=== PATIENT | female | born 1980 | race Caucasian/White ===

== ENCOUNTER → 2024-03-16 07:16 | Outpatient (REF) | payer OTHER, SELFPAY | LOC: RCS 07:16 | PROVIDERS: ATTENDING PHYSICIAN Internal Medicine Cardiovascular Disease; FAMILY PHYSICIAN Internal Medicine | DX: I50.30 Unspecified diastolic (congestive) heart failure (principal) | CPT/HCPCS: 93306; Q9950 ==

== ENCOUNTER 2024-03-23 15:32 | Inpatient (IN) | payer OTHER, SELFPAY ==
[2024-03-23] VITALS (22 sets, daily range): BP systolic 104–179; BP diastolic 86–124; PULSE 94–121; BMI 42.9
--- NOTE | 2024-03-23 11:45 | ED.GENMED ---
History of Present Illness
General
Chief Complaint: Breathing Problem
Source: patient and family
Exam Limitations: none
Time Seen by Provider: 03/23/24 10:55
Nursing documentation reviewed up to this point in time: agreed with
Travel History
Have you had any contact with someone who has COVID-19?: No
Do you have any symptoms of coronavirus? Fever > 100 degrees, chills, cough, shortness of breath, sore throat, loss of taste or smell, muscle aches, or headache?: No
History of Present Illness
History of Present Illness:
43-year-old female presents with shortness of breath subacute onset she status post bypass surgery at [facility] in the past year, diabetic smoker obese with strong family history in her brother CAD she followed up with her prior wellness nurse who
ordered a chemical stress test, which was abnormal told that she needed a cardiac cath she followed up with Dr. Ojeda locally who started her on a diuretic since being on the diuretic she is lost 13 pounds but she feels fatigued short of breath
some leg cramps, her leg edema has improved
Past History
Past History
ED Past Medical History: CAD, GERD, HTN and Other
ED Past Surgical History: Cardiac; Negative Appendectomy, Bowel resection or Cholecystectomy
Social History
Tobacco: Former smoker
Alcohol: Occasional
Drug: None
Personal:
Living: with family
Employment: Employed
Family History
Family History: CAD
Review of Systems
Review of Systems
All Other Systems: Not applicable
Constitutional: Reports fatigue; Denies fever
EENT: Reports no symptoms
Respiratory: Reports trouble breathing
Cardiac: Reports other; Denies chest pain, palpitations or syncope
ABD/GI: Reports no symptoms
: Reports no symptoms
Musculoskeletal: Reports muscle stiffness
Neurological: Reports dizzy and weakness
Psychiatric: Reports no symptoms
Phy Exam
Physical Exam
Physical Exam:
Physical Exam
General: no apparent distress, not acutely ill
Neck: No jaundice
Heart: Regular
Lungs: no acute respiratory distress. clear bilaterally
Abdomen: Not tender
Neuro: alert and oriented. no focal neurological deficits
Skin: no rash
Psychiatric: well kept. interactive and cooperative
Extremities: no edema. no calf tenderness
Scores
Heart Score for Chest Pain Patients
STEMI patient?: No
History: Moderately Suspicious
ECG: Nonspecific Repolarization
Age: </= 45 years
Risk Factors: >/= 3 Risk Factors or History of CAD
Troponin: >1 - <3 x Normal Limit
Heart Score for Chest Pain Patients: 5
Heart Score Risk: 20.3% MACE over next 6 weeks
Course
Orders/Labs/Results
Orders:
Orders
03/23/24 Lunch
NPO
Allow oral meds: Yes
Allow clear liquids: No
03/23/24 10:28
EKG [Electrocardiogram (*1)] Stat
Reason for Study: Shortness of Breath
EKG- Treatment ONCE
03/23/24 10:56
Cardiac Monitoring- Treatment ONCE
CR Chest - 2 Views Urgent
Comment:
Reason For Exam: sob
03/23/24 11:39
Orthostatic VS- Treatment ONCE
03/23/24 11:47
Complete Blood Count/With Diff Urgent
Comprehensive Metabolic Panel Urgent
Magnesium Urgent
NT-proBNP Urgent
Troponin I Urgent
03/23/24 12:39
CARDIOLOGY CONSULT Urgent
Consulting Provider: Roby Moeller
Was physician already notified: Yes
03/23/24 12:49
Heparin 4,000 units IV NOW STA
03/23/24 12:[address] Non Medication Order As Directed
Physician Order: PTT 6 hours after initial start of Heparin infusion
Above order entered?: Yes
03/23/24 12:54
PTT Urgent
Comment: Obtain baseline before beginning heparin infusion if not already collected
03/23/24 12:58
Metoprolol [Lopressor] 2.5 mg IV NOW STA
03/23/24 12:59
Nitroglycerin Sublingual [Nitrostat (Sublingual)] 0.4 mg SL NOW STA
03/23/24 13:00
Heparin 74051 Units/250 ml 25,000 units in 250 ml IV PER PROTOCOL
Weight to be used for heparin protocol in kilograms (kg):: 139.6
Protocol:: Cardiac Tx/Acute Coronary
PTT Goal Range to be used:: PTT 73 to 111 seconds
Order type:: Initial
INITIAL Infusion Dose (UNITS/KG/hr) & then follow protocol:: 12 units/kg/hr
Infusion Dose in UNITS/hr & then follow protocol (UNITS/hr):: 1,000
INFUSION RATE in mL/hr & then follow protocol (mL/hr):: 10
PTT less than or equal to 64 seconds:: Increase rate by 200 units/hr (+ 2 mL/hr)
PTT 64.1 to 72.9 seconds:: Increase rate by 100 units/hr (+ 1 mL/hr)
PTT 73 to 111 seconds:: Target Range. No change in rate.
PTT 111.1 to 130.9 seconds:: Decrease rate by 100 units/hr (- 1 mL/hr)
PTT 131 to 199.9 seconds:: HOLD for 1 hr. Then decrease rate by 200 units/hr (- 2 mL/hr)
PTT greater than or equal to 200 seconds:: HOLD for 2 hrs & Notify Provider. Then decrease by 200 units/hr (-
2 mL/hr)
Lab follow-up:: Each change, PTT q6h until 2 consecutive are therapeutic. Then PTT
daily.
03/23/24 20:00
PTT Urgent
Abnormal Lab Results
03/23/24 03/23/24
11:47 14:06
MCV 76.6 L fL
(81.0-99.0)
MCH 24.0 L pg
(27.0-31.0)
MCHC 31.3 L g/dL
(33.0-37.0)
Plt Count 432 H 10^3/uL
(130-400)
Creatinine 0.5 L mg/dL
(0.6-1.0)
Glucose 265 H mg/dl
(70-99)
Calcium 10.3 H mg/dl
(8.4-10.2)
Total Bilirubin 1.8 H mg/dl
(0.2-1.3)
AST 51 H U/L
(14-36)
ALT 43 H U/L
(0-35)
Troponin I 0.163 H* ng/ml
Total Protein 8.3 H g/dl
(6.3-8.2)
POC Glucose 216 H mg/dl
(70-99)
03/23/24 11:47
03/23/24 11:47
Vital Signs
Initial and Last Documented VS:
Initial Vital Signs
Temp Pulse Resp BP Pulse Ox
97.6 F 105 32 162/110 100
03/23/24 10:26 03/23/24 10:26 03/23/24 10:26 03/23/24 10:26 03/23/24 10:26
Last Documented Vital Signs
Temp Pulse Resp BP Pulse Ox
97.6 F 97 14 160/93 99
03/23/24 10:26 03/23/24 13:01 03/23/24 12:30 03/23/24 13:03/23/24 12:18
MDM/Problems Addressed
Differential Diagnosis Includes:
Overdiuresis orthostasis electrolyte abnormality heart failure deconditioning
MDM/Problems Addressed:
Fatigue shortness of breath
Chronic conditions affecting care: DM, HTN, CAD and Cardiomyopathy
Acute Exacerbation and/or Progression of Chronic Illness: DM, HTN, CAD and Cardiomyopathy
*EKG
Interpreted by ED Provider?: Yes
Interpretation: abnormal
Comparison EKG: no comparison EKG present
Heart Rate: 78
Rate: normal
Rhythm: sinus
Ischemia: T-wave inversion
*Field Hauler Interpretation
Rate: normal
Interpretation: normal
Heart Rate: 78
Rhythm: sinus
*Critical Care Note
Total Time (30-74mins, 75-104mins- exclusive of procedures): Not Applicable
Update Note
Update Note:
Update, chest x-ray noted labs are noted
Discussed with her wellness nurse, patient will be started on heparin, cardiac cath
ED Attending Note
-
Portions of this chart may have been created with voice recognition software.� Occasional wrong word or��sound alike� substitutions may have occurred due to the inherent limitations of voice recognition software.
Discharge Plan
Departure
Patient Disposition: Admit
Date of Disposition: 03/23/24
Time of Disposition: 13:09
Admit to: IVU
Presentation/result/management discussed w/ accepting MD/DO: Hospitalist
Patient with high blood pressure during this ER visit?: Yes
Condition: Fair
Covid-19: Not Applicable
Discharge Problem:
Increasing shortness of breath
Prescriptions:
No Action
cyclobenzaprine [Flexeril] 10 mg Tablet
10 mg PO HS
cetirizine 10 mg Tablet
10 mg PO HS
glipizide 10 mg Tablet
10 mg PO BID
clopidogrel 75 mg Tablet
75 mg PO DAILY
aspirin 81 mg Tablet,Delayed Release (Dr/Ec)
81 mg PO DAILY
metformin 500 mg Tablet Extended Release 24 Hr
500 mg PO DAILY
ezetimibe 10 mg Tablet
10 mg PO DAILY
rosuvastatin 40 mg Tablet
40 mg PO HS
bupropion HCl 150 mg Tablet Extended Release 24 Hr
150 mg PO HS
metoprolol tartrate 25 mg Tablet
25 mg PO BID
duloxetine 60 mg Capsule,Delayed Release(Dr/Ec)
60 mg PO DAILY
Xtampza ER 13.5 mg Cap,Sprinkl,Er12hr(Dont Crush)
13.5 mg PO HS
insulin glargine U-300 conc [Toujeo Max U-300 SoloStar] 300 unit/mL (3 mL) Insulin Pen
10 unit SC DAILY
Ozempic 1 mg/dose (4 mg/3 mL) Pen Injector
1 mg SC FR
Referrals:
Jennifer Guerra MD [Family Provider] -
Interventions
Interventions:
*Risk Screen - Suicide Last Done: 03/23/24 10:26
*General Assessment Last Done: 03/23/24 10:26
*Neglect/Abuse Screening Last Done: 03/23/24 10:26
ED- Fall Risk Assessment Last Done: 03/23/24 11:01
*ED COVID-19 Vaccine History Last Done: 03/23/24 10:26
ED- Cardiac Assessment Last Done: 03/23/24 11:01
ED- Pulmonary Assessment Last Done: 03/23/24 11:01
Discharge Date and Time
Print Language: ITALIAN
[2024-03-23 12:02] LABS: % Basophils 0.4 % (0-2); % Eosinophils 0.5 % (0-6); % Immature Granulocytes 0.2 % (0-0.5); % Lymphocytes 30.1 % (20.5-51.1); % Monocytes 5.6 % (1.7-9.3); % Neutrophils 63.2 % (42.2-75.2); Absolute Eosinophils 0.1 10^3/uL (0-0.7); Absolute Lymphocytes 3.1 10^3/uL (1.2-3.4); Absolute Monocytes 0.6 10^3/uL (0.1-0.6); Absolute Neutrophils 6.5 10^3/uL (1.4-6.5); Hematocrit 39.9 % (37.0-47.0); Hemoglobin 12.5 g/dL (12.0-16.0); Mean Corp Hgb Conc. 31.3 g/dL (33.0-37.0); Mean Corpuscular Volume 76.6 fL (81.0-99.0); Mean Platelet Volume 10.1 fL (7.4-10.4); Nucleated Red Blood Cells % 0 %; Platelet Count 432 10^3/uL (130-400); Red Blood Cell Count 5.21 10^6/uL (4.20-5.40); Red Cell Dist. Width 13.9 % (11.5-14.5); White Blood Cell Count 10.3 10^3/uL (4.8-10.8)
[2024-03-23 12:21] LABS: ALT (SGPT) 43 U/L (0-35); AST (SGOT) 51 U/L (14-36); Alkaline Phosphatase 111 U/L (38-126); Blood Urea Nitrogen 17 mg/dl (7-17); Calcium 10.3 mg/dl (8.4-10.2); Carbon Dioxide 23 mmol/L (22-30); Chloride 99 mmol/L (98-107); Estimated Creatinine Clearance > 125 ml/min; Glucose 265 mg/dl (70-99); Magnesium 1.9 mg/dl (1.6-2.3); Potassium 4.3 mmol/L (3.5-5.1); Sodium 137 mmol/L (135-145); Total Bilirubin 1.8 mg/dl (0.2-1.3); Total Protein 8.3 g/dl (6.3-8.2); eGFR > 60.00
[2024-03-23 12:36] LABS: Troponin I 0.163 ng/ml
[2024-03-23] MEDS: NITROSTAT (SUBLINGUAL) 0.400000000000000022 MG SL (13:01)
[2024-03-23] MEDS: LOPRESSOR 2.5 MG IV (13:01)
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
[2024-03-23 13:08] LABS: NT-proBNP 78.4 pg/ml
[2024-03-23 13:23] LABS: APTT 23.9 Sec (23.4-35.0)
[2024-03-23] MEDS: HEPARIN 4000 UNITS IV (14:02)
[2024-03-23 14:07] LABS: Glucose - Point of Care 216 mg/dl (70-99)
[2024-03-23] MEDS: HEPARIN 25000 UNITS/250 ML IV (14:07)
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
--- NOTE | 2024-03-23 15:44 | W.PN.UPDATE ---
Update Note
Progress Note Update
For Billing Purpose only
[2024-03-23 16:08] LABS: Troponin I < 0.012 ng/ml
--- NOTE | 2024-03-23 16:57 | ITS.CL.CATH ---
Cooler Room Worker - Catheterization
Cardiac Catheterization
Procedure Report:
LEFT HEART CATHETERIZATION
Date of Procedure: March 23, 2024
Referring: Dr. Roby Moeller
PROCEDURES:
1. Left heart catheterization with coronary and single-plane left ventriculography
2. Selective CARLOS angiography
INDICATION: This is a 43-year-old female with a past medical history notable for aggressive coronary artery disease and prior stenting of the LAD and reported stenting of the distal RCA. She underwent diagnostic coronary angiography on October 11,
2022 and was found to have a high-grade ostial stenosis of the LAD. She was referred to [facility] where she underwent robotic assisted SZYMANSKI-LAD by Dr. Naif Jin. She reports discontinuation of aspirin and clopidogrel several days ago.
She presented to [facility] this afternoon with complaints of shortness of breath and substernal chest pressure. Her electrocardiogram was notable for ST-T segment changes in the anterolateral leads and her initial troponin measured 0.163
nanograms per milliliter, however, on repeat her troponin was undetectable. She was also noted to have newly elevated LFTs and bilirubin. She is referred for coronary angiography
ACCESS: Left radial artery, 6 Lao sheath. Severe pain with catheter manipulation
HEMODYNAMICS : (mmHg)
AO (s/d) : 127/95
LV (s/d) : 126/5
LVEDP : 8
CORONARY ANGIOGRAPHY
Dominance: Right
LEFT MAIN: Normal
LEFT ANTERIOR DESCENDIN-65% ostial narrowing. A medium caliber diagonal branch arises from the mid LAD with a 20% proximal narrowing. The LAD beyond the diagonal branch demonstrates competitive flow from a patent CARLOS graft to the distal LAD
CIRCUMFLEX: The circumflex is a medium caliber nondominant vessel. The proximal circumflex has a 40% stenosis. The circumflex supplies a single sizable obtuse marginal branch
RIGHT CORONARY ARTERY: The right coronary artery is a dominant vessel that has only minor luminal irregularities over its course. The PDA has a 30% ostial stenosis. The posterolateral branch is a moderate caliber vessel supplying a large territory
and tapers distally to a small caliber vessel.
GRAFT ANGIOGRAPHY:
1. SZYMANSKI-LAD: The SZYMANSKI graft to the distal LAD is patent with a 50% stenosis at the distal anastomosis. There is antegrade and retrograde filling of the LAD
LEFT VENTRICULOGRAPHY: Left ventriculography was performed in an GORDON projection. The digital single-plane left ventricular ejection fraction is estimated at 60% and no regional wall motion abnormalities are noted
RADIATION SUMMARY: Fluoro Time (min): 7.6, Dose (mGy): 972, DAP (Gy.cm2) : 72
Closure Device: TR band
CONCLUSION
1. Stable coronary anatomy with LESLIE-3 flow distally in all vessels. The off-pump robotic assisted SZYMANSKI-LAD is patent to the apical LAD with 50% stenosis at the distal anastomosis
2. Preserved left ventricular systolic function
3. Normal LVEDP
RECOMMENDATIONS
1. Continue medical therapy and risk factor modification. Patient is very hypertensive here in the Cooler Room Worker, however, she states at home systolic blood pressures typically run around 100 mmHg
2. Clopidogrel 300 mg loading dose because she skipped several doses
Copy to: Dr. Roby Moeller
[2024-03-23] MEDS: TYLENOL 650 MG PO (17:22)
[2024-03-23] MEDS: NSS 1000 IV (17:23)
[2024-03-23 18:16] LABS: Glucose - Point of Care 218 mg/dl (70-99)
[2024-03-23] MEDS: NOVOLOG FLEXPEN-LOW RESISTANCE 2 UNITS SC (18:32)
--- NOTE | 2024-03-23 19:46 | PTCARENOTE ---
Pt received post cardiac cath done via left radial artery. Radial site intact. Telemetry shows sinus rhythm. Plan to trend troponins.
[2024-03-23] MEDS: WELLBUTRIN XL (24 hour extended release) 150 MG PO (21:38)
[2024-03-23] MEDS: FLEXERIL 10 MG PO (21:38)
[2024-03-23] MEDS: CRESTOR 40 MG PO (21:38)
[2024-03-23] MEDS: LOPRESSOR 25 MG PO (21:38)
[2024-03-23] MEDS: ROXICODONE 15 MG PO (21:39)
[2024-03-23] MEDS: ZYRTEC 10 MG PO (21:39)
[2024-03-23 21:41] LABS: Glucose - Point of Care 287 mg/dl (70-99)
[2024-03-23 22:31] LABS: Troponin I < 0.012 ng/ml
--- NOTE | 2024-03-23 22:37 | RESPNOTE ---
Placed PT on nasal CPAP as ordered and the PT was unable to tolerate, PT encouraged to have family bring her nasal pillows tomorrow for use with our machine.
[2024-03-24] VITALS (12 sets, daily range): BP systolic 117–163; BP diastolic 95–116; PULSE 80–120; O2SAT 98; BMI 42.8
--- NOTE | 2024-03-24 03:17 | PTCARENOTE ---
Pt rec'd AAOx3 w/no c/o CP. Pt does c/o some SOB w/activity, which she states is 'unchanged from when she came in'. Pt w/R radial access site w/band off, dressing C/D/I w/no signs or symptoms of bleeding or hematoma. Pt's VS stable w/HR in the
80's-90's & BP trending down w/most recent BP 135/88. Pt attempted to use our CPAP, but was unable to tolerate it, so pt was placed on O2 via NC at 2L. Pt advised to have someone bring own CPAP to use if she is not discharged in the next 24 hrs.
Plan of care ongoing.
[2024-03-24 04:29] LABS: % Basophils 0.8 % (0-2); % Eosinophils 1.6 % (0-6); % Immature Granulocytes 0.1 % (0-0.5); % Lymphocytes 35.4 % (20.5-51.1); % Monocytes 7.6 % (1.7-9.3); % Neutrophils 54.5 % (42.2-75.2); Absolute Basophils 0.1 10^3/uL (0-0.2); Absolute Eosinophils 0.1 10^3/uL (0-0.7); Absolute Lymphocytes 2.6 10^3/uL (1.2-3.4); Absolute Monocytes 0.6 10^3/uL (0.1-0.6); Hematocrit 37.7 % (37.0-47.0); Hemoglobin 11.9 g/dL (12.0-16.0); Mean Corp Hgb Conc. 31.6 g/dL (33.0-37.0); Mean Corpuscular Hgb 24.2 pg (27.0-31.0); Mean Corpuscular Volume 76.8 fL (81.0-99.0); Mean Platelet Volume 9.9 fL (7.4-10.4); Nucleated Red Blood Cells % 0 %; Platelet Count 361 10^3/uL (130-400); Red Blood Cell Count 4.91 10^6/uL (4.20-5.40); Red Cell Dist. Width 13.9 % (11.5-14.5); White Blood Cell Count 7.4 10^3/uL (4.8-10.8)
[2024-03-24 04:55] LABS: Troponin I < 0.012 ng/ml
[2024-03-24 04:56] LABS: ALT (SGPT) 40 U/L (0-35); AST (SGOT) 46 U/L (14-36); Albumin 4.4 g/dl (3.5-5.0); Alkaline Phosphatase 98 U/L (38-126); Blood Urea Nitrogen 18 mg/dl (7-17); Calcium 9.9 mg/dl (8.4-10.2); Carbon Dioxide 25 mmol/L (22-30); Chloride 101 mmol/L (98-107); Estimated Creatinine Clearance > 125 ml/min; Glucose 251 mg/dl (70-99); HDL Cholesterol 33 mg/dl; LDL Cholesterol, Calculated 57 mg/dl; Sodium 138 mmol/L (135-145); Total Bilirubin 1.6 mg/dl (0.2-1.3); Total Cholesterol 119 mg/dl (50-199); Total Protein 7.4 g/dl (6.3-8.2); Triglyceride 145 mg/dl (10-149); Very Low Density Lipoprotein 29 mg/dl (0-30); eGFR > 60.00
[2024-03-24 06:59] LABS: Glucose - Point of Care 300 mg/dl (70-99)
[2024-03-24] MEDS: ZETIA 10 MG PO (08:25)
[2024-03-24] MEDS: CYMBALTA DELAYED RELEASE 60 MG PO (08:25)
[2024-03-24] MEDS: PLAVIX 75 MG PO (08:25)
[2024-03-24] MEDS: ASPIR LOW (ENTERIC COATED) 81 MG PO (08:25)
[2024-03-24] MEDS: LOPRESSOR 25 MG PO (08:25)
[2024-03-24] MEDS: LANTUS 0.0800000000000000017 UNITS SC (08:26)
[2024-03-24] MEDS: NOVOLOG FLEXPEN-LOW RESISTANCE 4 UNITS SC (08:27)
[2024-03-24] MEDS: FLUSH (NSS) 1 FLUSH IV (08:28)
[2024-03-24] MEDS: DEMADEX 10 MG PO (08:42)
[2024-03-24] MEDS: NORVASC 5 MG PO (08:42)
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
[2024-03-24 09:41] LABS: Glycohemoglobin (HgbA1c) 7.9 % (4.0-5.6)
--- NOTE | 2024-03-24 10:23 | PTCARENOTE ---
Received patient this morning resting in bed, dressing left wrist is dry and intact. Patient states she still feels sob when she is oob although does admit it has improved. Patient seen by cardiology and meds adjusted due to elevated BP. Family at
the bedside, will recheck BP to evaluate.
[2024-03-24 11:36] LABS: Glucose - Point of Care 269 mg/dl (70-99)
[2024-03-24 11:53] LABS: D-Dimer < 0.27 ug/mlFEU (0.00-0.50)
[2024-03-24] MEDS: NOVOLOG FLEXPEN-LOW RESISTANCE 3 UNITS SC (12:09)
[2024-03-24] MEDS: COLACE 100 MG PO ×2 (12:10→20:04)
[2024-03-24] MEDS: PULMICORT 0.5 MG INH ×2 (12:20→17:52)
[2024-03-24] MEDS: DUONEB 3 ML INH ×2 (12:20→17:52)
--- NOTE | 2024-03-24 13:36 | W.PN.HOSP.TC ---
Today's Communication/Plan
-
Monitor vital signs and see plan
Start Pulmicort, DuoNebs and monitor
D-dimer negative
Continue with BP meds
Home O2 eval in a.m.
Monitor dyspnea
Assessment / Plan
Assessment / Plan
General: Comfortable and Conversant
HEENT: NormoCephalic, Anicteric, Moist mucous membranes
Respiratory: Clear; No Wheezes, Rales or Rhonchi
Cardiac: S1/S2 and Regular Rhythm
GI: Soft, Non Tender, Non Distended, Normal Bowel Sounds
Musculoskeletal: No Clubbing, No Cyanosis and No Edema
Neuro: AO x 3, No Motor Deficits, Nonfocal/grossly intact
Dyspnea suspect multifactorial likely secondary to hypertensive urgency, obstructive/restrictive lung disease, ISIAH
#CAD
#Status post inferior wall CA with distal RCA stenting October 2021, LAD stent January 2023, robotic CABG x 1 SZYMANSKI to LAD October 14, 2023 at [facility] pericarditis 10/31
Cardiology following
Cardiac catheterization 03/23/2024: M: Normal; LAD 60 to 65% ostial stenosis, 20% mid, LAD with competitive flow from patent SZYMANSKI to distal LAD; LCX: Proximal 40%; RCA: LI, PDA 30% ostial; SZYMANSKI�LAD: Patent with 50% stenosis at distal anastomosis.
without significant change to explain her dyspnea. Started on amlodipine, Toprol.
D-dimer negative
Suspect she has pulmonary component. She does follow-up with manager furniture outpatient. Will start patient on inhaled steroids and DuoNeb and will monitor. If breathing improves then we will discharge her home inhaler with outpatient follow-up
with pulmonary. She has never been diagnosed with COPD however has history of smoking, vaping
-Continue ASA and plavix
-Continue Crestor 40 mg at bedtime, Zetia 10 mg daily
-Recent stress test 03/08/2024: Mild reversible anterior defect. EF 53%
#Hypertensive urgency
monitor
BP improving
#HLD
-Continue Zetia and Crestor
#DM 2
Accu-Cheks and SSI, check Hgb A1c
-Hold metformin, restart glipizide
-Continue insulin glargine 10 units a.m.
-Patient is also on Ozempic on Fridays last dose was 03/16/2024
#Obesity due to excess calorie consumption
-Patient currently on Ozempic for diabetes and weight loss
#Obstructive sleep apnea with CPAP
-Uses nasal pillow with setting of 7
#Former smoker quit 2021
#Anxiety/depression
-Continue duloxetine 60 mg daily
#Chronic back pain on chronic oral opiates
-Continue Xtampza ER 13.5 mg at bedtime, Flexeril 10 mg at bedtime
#Medical marijuana use
-Patient reports stop vaping 1 week ago switch to oral liquid
#Endometriosis hx
DVT prophylaxis
lovenox
Full code
I spent a total of 52 minutes with the patient or on the floor. More than 50% of this time involved counseling and coordination of care.
Anticipated Discharge: Within 24 hours
Subjective/Interval History
-
Date of Service: March 24, 2024
denies pain
Objective Data
-
Labs:
Laboratory Results
03/24/24
04:05
WBC 7.4
Hgb 11.9 L
Hct 37.7
Plt Count 361
Sodium 138
Potassium 4.0
Chloride 101
Carbon Dioxide 25
BUN 18 H
Creatinine 0.5 L
Glucose 251 H
Calcium 9.9
Total Bilirubin 1.6 H
AST 46 H
ALT 40 H
Alkaline Phosphatase 98
Vital Signs:
Vital Signs
Temp Pulse Resp BP Pulse Ox
97.6 F 88 16 142/111 96
03/24/24 11:31 03/24/24 12:25 03/24/24 12:25 03/24/24 11:31 03/24/24 12:25
I&O
03/23/24 03/24/24 03/25/24
06:59 06:59 06:59
Intake Total 1700 / 1700
Balance 1700 / 1700
[2024-03-24] MEDS: LOVENOX 40 MG SC (18:01)
[2024-03-24 18:07] LABS: Glucose - Point of Care 206 mg/dl (70-99)
[2024-03-24] MEDS: NOVOLOG FLEXPEN-LOW RESISTANCE 2 UNITS SC (18:07)
--- NOTE | 2024-03-24 18:21 | PTCARENOTE ---
Patient ambulated to the bathroom, telemetry alarming with a heart rate in the 150's. Patient returned back to bed, tearful and anxious, stating just walking to the bathroom has her out of breath. Pulse ox is 100% on RA, patient describes it as a
pressure feeling that causes her to feel sob. BP at the time elevated at 144/116. Dr. Baxter notified and CT PE study ordered, patient updated, BP now 137/99.
[2024-03-24] MEDS: GLUCOTROL 10 MG PO (20:04)
[2024-03-24] MEDS: TOPROL XL 50 MG PO (20:05)
[2024-03-24] MEDS: ATIVAN 0.5 MG PO (20:50)
[2024-03-24 21:36] LABS: Glucose - Point of Care 219 mg/dl (70-99)
[2024-03-24] MEDS: FLEXERIL 10 MG PO (22:50)
[2024-03-24] MEDS: ROXICODONE 15 MG PO (22:50)
[2024-03-24] MEDS: CRESTOR 40 MG PO (22:50)
[2024-03-24] MEDS: ZYRTEC 10 MG PO (22:50)
[2024-03-24] MEDS: WELLBUTRIN XL (24 hour extended release) 150 MG PO (22:51)
--- NOTE | 2024-03-25 00:59 | PTCARENOTE ---
Late Note:Patient expressed she felt sob at times and asked for ativan, order obtained and took 0.5 mg po at 2049. Has been sleeping wearing CPAP. SR to ST on the monitor.
[2024-03-25 04:46] VITALS: BP 122/84
[2024-03-25 05:10] LABS: % Basophils 0.8 % (0-2); % Eosinophils 1.9 % (0-6); % Immature Granulocytes 0.3 % (0-0.5); % Lymphocytes 43.3 % (20.5-51.1); % Monocytes 8.2 % (1.7-9.3); % Neutrophils 45.5 % (42.2-75.2); Absolute Basophils 0.1 10^3/uL (0-0.2); Absolute Eosinophils 0.1 10^3/uL (0-0.7); Absolute Lymphocytes 2.7 10^3/uL (1.2-3.4); Absolute Monocytes 0.5 10^3/uL (0.1-0.6); Absolute Neutrophils 2.9 10^3/uL (1.4-6.5); Hematocrit 35.5 % (37.0-47.0); Hemoglobin 11.5 g/dL (12.0-16.0); Mean Corp Hgb Conc. 32.4 g/dL (33.0-37.0); Mean Corpuscular Hgb 24.1 pg (27.0-31.0); Mean Corpuscular Volume 74.4 fL (81.0-99.0); Nucleated Red Blood Cells % 0 %; Platelet Count 347 10^3/uL (130-400); Red Blood Cell Count 4.77 10^6/uL (4.20-5.40); Red Cell Dist. Width 13.9 % (11.5-14.5); White Blood Cell Count 6.3 10^3/uL (4.8-10.8)
[2024-03-25 06:02] LABS: ALT (SGPT) 33 U/L (0-35); AST (SGOT) 33 U/L (14-36); Albumin 4.5 g/dl (3.5-5.0); Alkaline Phosphatase 89 U/L (38-126); Blood Urea Nitrogen 20 mg/dl (7-17); Calcium 9.8 mg/dl (8.4-10.2); Carbon Dioxide 24 mmol/L (22-30); Chloride 99 mmol/L (98-107); Estimated Creatinine Clearance > 125 ml/min; Glucose 232 mg/dl (70-99); Potassium 3.7 mmol/L (3.5-5.1); Sodium 137 mmol/L (135-145); Total Bilirubin 1.5 mg/dl (0.2-1.3); Total Protein 7.3 g/dl (6.3-8.2); eGFR > 60.00
[2024-03-25 07:58] VITALS: BP 146/87
[2024-03-25] MEDS: DUONEB 3 ML INH (08:02)
[2024-03-25] MEDS: PULMICORT 0.5 MG INH (08:02)
[2024-03-25 08:27] LABS: Glucose - Point of Care 244 mg/dl (70-99)
[2024-03-25] MEDS: COLACE 100 MG PO (09:06)
[2024-03-25] MEDS: ASPIR LOW (ENTERIC COATED) 81 MG PO (09:06)
[2024-03-25] MEDS: NOVOLOG FLEXPEN-LOW RESISTANCE 2 UNITS SC (09:06)
[2024-03-25] MEDS: CYMBALTA DELAYED RELEASE 60 MG PO (09:07)
[2024-03-25] MEDS: NORVASC 5 MG PO (09:07)
[2024-03-25] MEDS: DEMADEX 10 MG PO (09:07)
[2024-03-25] MEDS: PLAVIX 75 MG PO (09:07)
[2024-03-25] MEDS: GLUCOTROL 10 MG PO (09:07)
[2024-03-25] MEDS: LANTUS 0.100000000000000006 UNITS SC (09:08)
[2024-03-25] MEDS: ZETIA 10 MG PO (09:08)
[2024-03-25] MEDS: TOPROL XL 50 MG PO (09:08)
[2024-03-25] MEDS: FLUSH (NSS) 1 FLUSH IV (09:09)
--- NOTE | 2024-03-25 11:01 | PTCARENOTE ---
Received patient this morning resting in bed, had a better night after receiving ativan PO. States she is feeling better, seen by Dr. Baxter and plan is for discharge home today.
[2024-03-25 11:13] VITALS: BP 135/93
[2024-03-25 11:15] VITALS: BP 133/91
--- NOTE | 2024-03-25 11:22 | W.PN.HOSP.TC ---
Today's Communication/Plan
-
Monitor vital signs and see plan
Now feeling better
Discharge today with outpatient follow-up
cw current meds
Time of discharge 38 minutes
Assessment / Plan
Assessment / Plan
General: Comfortable and Conversant
HEENT: NormoCephalic, Anicteric, Moist mucous membranes
Respiratory: Clear; No Wheezes, Rales or Rhonchi
Cardiac: S1/S2 and Regular Rhythm
GI: Soft, Non Tender, Non Distended, Normal Bowel Sounds
Musculoskeletal: No Clubbing, No Cyanosis and No Edema
Neuro: AO x 3, No Motor Deficits, Nonfocal/grossly intact
Dyspnea suspect multifactorial likely secondary to hypertensive urgency, obstructive/restrictive lung disease, ISIAH
#CAD
#Status post inferior wall [place] with distal RCA stenting October 2021, LAD stent January 2023, robotic CABG x 1 SZYMANSKI to LAD October 14, 2023 at [facility] 10/31
Cardiology following
Cardiac catheterization 03/23/2024: M: Normal; LAD 60 to 65% ostial stenosis, 20% mid, LAD with competitive flow from patent SZYMANSKI to distal LAD; LCX: Proximal 40%; RCA: LI, PDA 30% ostial; SZYMANSKI�LAD: Patent with 50% stenosis at distal anastomosis.
without significant change to explain her dyspnea. Started on amlodipine, Toprol.
D-dimer negative
Suspect she has pulmonary component. 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 does not appear that nebs helped a lot. on dc would just do prn albuterol. She has never been diagnosed with COPD however has history of smoking, vaping
CT chest without any acute abnormality. Suspect there is some anxiety component. Does feel better after Ativan. Patient blood pressure today is better and subsequently she is feeling better. Will discharge home with outpatient follow-up
-Continue ASA and plavix
-Continue Crestor 40 mg at bedtime, Zetia 10 mg daily
-Recent stress test 03/08/2024: Mild reversible anterior defect. EF 53%
#Hypertensive urgency
monitor
BP improving
#HLD
-Continue Zetia and Crestor
#DM 2
Accu-Cheks and SSI, check Hgb A1c
-Hold metformin, restart glipizide
-Continue insulin glargine 10 units a.m.
-Patient is also on Ozempic on Fridays last dose was 03/16/2024
#Obesity due to excess calorie consumption
-Patient currently on Ozempic for diabetes and weight loss
#Obstructive sleep apnea with CPAP
-Uses nasal pillow with setting of 7
#Former smoker quit 2021
#Anxiety/depression
-Continue duloxetine 60 mg daily
#Chronic back pain on chronic oral opiates
-Continue Xtampza ER 13.5 mg at bedtime, Flexeril 10 mg at bedtime
#Medical marijuana use
-Patient reports stop vaping 1 week ago switch to oral liquid
#Endometriosis hx
DVT prophylaxis
lovenox
Full code
Anticipated Discharge: Today
Subjective/Interval History
-
Date of Service: March 25, 2024
denies pain
Objective Data
-
Labs:
Laboratory Results
03/25/24
04:53
WBC 6.3
Hgb 11.5 L
Hct 35.5 L
Plt Count 347
Sodium 137
Potassium 3.7
Chloride 99
Carbon Dioxide 24
BUN 20 H
Creatinine 0.5 L
Glucose 232 H
Calcium 9.8
Total Bilirubin 1.5 H
AST 33
ALT 33
Alkaline Phosphatase 89
Vital Signs:
Vital Signs
Temp Pulse Resp BP Pulse Ox
98.4 F 107 20 146/87 97
03/25/24 11:11 03/25/24 08:03 03/25/24 11:11 03/25/24 07:58 03/25/24 11:11
I&O
03/24/24 03/25/24 03/26/24
06:59 06:59 06:59
Intake Total 1700 / 1700 480 / 480
Balance 1700 / 1700 480 / 480
--- NOTE | 2024-03-25 11:30 | W.DCSUMMARY ---
Discharge Summary
Discharge Data
Date of Admission: 03/23/24
Date of Discharge: 03/25/24
-
Pending Results: No
Hospital Course
43-year-old female with past medical history of ISIAH, extensive cardiac history status post stents, CABG, anxiety/depression, chronic pain, medical marijuana use, endometriosis came to the hospital with dyspnea which was likely thought was
multifactorial secondary to hypertension, ISIAH and possible obstructive lung disease along with her anxiety. Given extensive cardiac history and recent concerning stress test, cardiology performed cardiac catheterization on 03/23/2024 which did not
show worsening coronary artery disease and no new intervention was performed. Patient symptoms were likely thought was secondary to uncontrolled blood pressure. Patient was then started on amlodipine along with Toprol. There was also an anxiety
component. Patient symptoms tends to improve after Ativan. Given her significant dyspnea she also got a CT chest which did not show any acute abnormality. Nebulizer was tried however patient did not had significant improvement. Patient was
instructed to follow-up with pulmonary outpatient for PFTs. Prior to discharge patient was able to tolerate walking in the hallway and did not complain of significant dyspnea. Since patient symptoms were improving, she was then discharged home
with instructions to follow-up with all her physicians outpatient.
Discharge Plan
-
Patient Disposition: Home (Routine Discharge)
Discharge Diagnosis/Procedures: Dyspnea suspect multifactorial likely secondary to hypertensive urgency, obstructive/restrictive lung disease, ISIAH
s/p Cardiac cath
Uncontrolled HTN
Anxiety
Diet: Low Cholesterol and Diabetic, Carb Controlled
Driving Restrictions: No driving for 24 hours
Stand Alone Forms: DC Instructions- Cath/EP Lab
Referrals:
[facility] [Outside] - 05/03/24 8:00 am
(Cardiac Rehab Orientation and First Exercise appointment is on May 03, 2024.
The Cardiac Rehab gym is located on the first floor of the [facility].)
Roby Moeller MD [Active] - 05/03/24 11:20 am
Jennifer Guerra MD [Family Provider] - in less than 1 week
Additional Discharge Medication Instructions: Hold Metformin post procedure, resume on Tuesday evening
Prescriptions:
New
amlodipine 5 mg Tablet
5 mg PO DAILY Qty: 90 3RF
torsemide 5 mg Tablet
10 mg PO DAILY Qty: 1 0RF
metoprolol succinate 25 mg Tablet Extended Release 24 Hr
25 mg PO BID Qty: 90 3RF
docusate sodium 100 mg Capsule
100 mg PO BID Qty: 0 0RF
albuterol sulfate 90 mcg/actuation HFA aerosol inhaler
2 puff inhalation Q6H PRN (Reason: shortness of breath or wheezing) Qty: 8.5 0RF
Continued
cyclobenzaprine 10 mg Tablet
10 mg PO HS
cetirizine 10 mg Tablet
10 mg PO HS
glipizide 10 mg Tablet
10 mg PO BID
metformin 500 mg Tablet Extended Release 24 Hr
500 mg PO DAILY
rosuvastatin 40 mg Tablet
40 mg PO HS
bupropion HCl 150 mg Tablet Extended Release 24 Hr
150 mg PO HS
duloxetine 60 mg Capsule,Delayed Release(Dr/Ec)
60 mg PO DAILY
Xtampza ER 13.5 mg Cap,Sprinkl,Er12hr(Dont Crush)
13.5 mg PO HS
insulin glargine U-300 conc [Toujeo Max U-300 SoloStar] 300 unit/mL (3 mL) Insulin Pen
10 unit SC DAILY
Ozempic 1 mg/dose (4 mg/3 mL) Pen Injector
1 mg SC FR
clopidogrel 75 mg Tablet
75 mg PO DAILY Qty: 90 3RF
aspirin 81 mg Tablet,Delayed Release (Dr/Ec)
81 mg PO DAILY Qty: 90 3RF
ezetimibe 10 mg Tablet
10 mg PO DAILY Qty: 90 3RF
lorazepam [Ativan] 1 mg Tablet
1 mg PRN (Reason: anxiety)
Discontinued
metoprolol tartrate 25 mg Tablet
25 mg PO BID
Discharge Orders:
Discharge Patient (As Directed); Ordered 03/25/24
Ordered By: Frank Baxter
Discharge Date and Time
Discharge Date/Time: 03/25/24 12:30
Print Language: SWEDISH
--- NOTE | 2024-03-25 13:17 | PTCARENOTE ---
Patient seen by Dr. Baxter and is ok for discharge. Reviewed discharge instructions, medications and follow up appointments with the patient and she states her understanding. Patient discharged home with her boyfriend.
== END 2024-03-25 12:30 | disposition home or self-care (01) | DRG 287 ==
LOC: IVU 15:32
PROVIDERS: Clinical Nurse Specialist Family Health; Internal Medicine Interventional Cardiology; Nurse Practitioner Adult Health; Physician Assistant Medical; ADMITTING PHYSICIAN Internal Medicine; CONSULT PHYSICIAN Internal Medicine Cardiovascular Disease; EMERGENCY PHYSICIAN Emergency Medicine; FAMILY PHYSICIAN Internal Medicine
PROC: B2151ZZ Fluoroscopy of Left Heart using Low Osmolar Contrast (ICD-10-PCS; 2024-03-23)
PROC: B2111ZZ Fluoroscopy of Multiple Coronary Arteries using Low Osmolar Contrast (ICD-10-PCS; 2024-03-23)
PROC: 4A023N7 Measurement of Cardiac Sampling and Pressure, Left Heart, Percutaneous Approach (ICD-10-PCS; 2024-03-23)
PROC: 5A09357 Assistance with Respiratory Ventilation, Less than 24 Consecutive Hours, Continuous Positive Airway Pressure (ICD-10-PCS; 2024-03-24)
DX: I16.0 Hypertensive urgency (principal); Z68.41 Body mass index [BMI] 40.0-44.9, adult; I10 Essential (primary) hypertension; E11.9 Type 2 diabetes mellitus without complications; F32.A Depression, unspecified; E66.01 Morbid (severe) obesity due to excess calories; J44.9 Chronic obstructive pulmonary disease, unspecified; I25.10 Atherosclerotic heart disease of native coronary artery without angina pectoris; I25.2 Old myocardial infarction; E78.5 Hyperlipidemia, unspecified; E83.52 Hypercalcemia; F41.9 Anxiety disorder, unspecified; G47.33 Obstructive sleep apnea (adult) (pediatric); G89.21 Chronic pain due to trauma; M54.9 Dorsalgia, unspecified; K21.9 Gastro-esophageal reflux disease without esophagitis; R79.89 Other specified abnormal findings of blood chemistry; Z79.02 Long term (current) use of antithrombotics/antiplatelets; Z79.4 Long term (current) use of insulin; Z79.82 Long term (current) use of aspirin; Z79.84 Long term (current) use of oral hypoglycemic drugs; Z79.891 Long term (current) use of opiate analgesic; Z79.899 Other long term (current) drug therapy; Z86.79 Personal history of other diseases of the circulatory system; Z87.891 Personal history of nicotine dependence; Z95.1 Presence of aortocoronary bypass graft; Z95.5 Presence of coronary angioplasty implant and graft; Z88.2 Allergy status to sulfonamides; Z88.3 Allergy status to other anti-infective agents; Z88.5 Allergy status to narcotic agent; Z82.49 Family history of ischemic heart disease and other diseases of the circulatory system; Z83.3 Family history of diabetes mellitus
CPT/HCPCS: 71046; 71275; 80053; 80061; 82962; 83036; 83735; 83880; 84484; 85025; 85379; 85730; 93005; 93459; 94640; 94660; 96374; 96375; 97162; 99285; C1894; Q9967

== ENCOUNTER → 2025-01-03 07:05 | Outpatient (REF) | payer OTHER, SELFPAY ==
--- NOTE | 2025-01-03 08:25 | CARDSERVDEF ---
Echocardiogram with Definity completed after protocol screening completed. Allergies verified.
Patent IV site: _Left hand 22 G PC inserted by IV team____
IV site flushed with 0.9% NaCl pre and post administration.
Diluted bolus method utilized to enhance visualization of ventricular bee.
Total volume given: _3.5___ mL
Patient tolerated all procedures well without complications.
Heplock D/C ed at 0823, site clear, no redness, no edema. Pressure held, no bleeding,2x2 applied and taped. Pt offers no complaints.
== END ==
LOC: RCS 07:05
PROVIDERS: ATTENDING PHYSICIAN Internal Medicine Cardiovascular Disease; FAMILY PHYSICIAN Internal Medicine
DX: I50.30 Unspecified diastolic (congestive) heart failure (principal)
CPT/HCPCS: 93306; Q9957

== ENCOUNTER → 2025-07-04 09:32 | Outpatient (REF) | payer MEDICARE, SELFPAY | LOC: HWRAD 09:32 | PROVIDERS: ATTENDING PHYSICIAN Advanced Practice Midwife; FAMILY PHYSICIAN Internal Medicine | DX: N92.0 Excessive and frequent menstruation with regular cycle (principal) | CPT/HCPCS: 76830; 76856 ==

== ENCOUNTER 2025-08-13 09:08 | Outpatient (RCR) | payer MEDICARE, OTHER, SELFPAY ==
[2025-08-13 09:20] VITALS: BP 125/65
[2025-08-13] MEDS: INJECTAFER 265 MG IV (09:39)
[2025-08-13 09:44] VITALS: BMI 46.4
[2025-08-13 10:30] VITALS: BP 125/65
== END 2025-08-14 10:28 | disposition home or self-care (01) ==
LOC: OID 09:08
PROVIDERS: ATTENDING PHYSICIAN Nurse Practitioner
DX: D50.0 Iron deficiency anemia secondary to blood loss (chronic) (principal); I50.30 Unspecified diastolic (congestive) heart failure; Z95.1 Presence of aortocoronary bypass graft; Z87.891 Personal history of nicotine dependence
CPT/HCPCS: 96365; J1439

== ENCOUNTER 2025-08-20 11:12 | Emergency (ER) | payer MEDICARE, OTHER, SELFPAY ==
[2025-08-20 11:16] VITALS: BP 139/93
--- NOTE | 2025-08-20 12:02 | ED.GENMED ---
History of Present Illness
<NICOLE Juan - Last Filed: 08/20/25 16:19>
General
Chief Complaint: Breathing Problem
Source: patient
Exam Limitations: none
Time Seen by Provider: 08/20/25 11:59
Nursing documentation reviewed up to this point in time: agreed with
History of Present Illness
History of Present Illness:
Patient is a 44-year-old female with past medical history of obstructive sleep apnea CAD hypertension IL, cardiac stents CABG (Robtotic ) anxiety depression chronic pain endometriosis presents to the ER for evaluation. She is iron deficient and had
a first iron transfusion last week. Since then she has had bodyaches exhaustion chest pain shortness of breath and shortness of breath with exertion and went for her second iron transfusion and was sent here to the ER. After her iron transfusion
she was up 5 pounds that she called her mechanics handyman here Dr. Gomez who recommended her to increase torsemide which she did for the past 3 days.
She denies any ankle swelling
Past History
<NICOLE Juan - Last Filed: 08/20/25 16:19>
Past History
ED Past Medical History: CAD, GERD, HTN and Other
ED Past Surgical History: Cardiac; Negative Appendectomy, Bowel resection or Cholecystectomy
Social History
Tobacco: Former smoker
Alcohol: Occasional
Drug: None
Personal:
Living: with family
Employment: Employed
Family History
Family History: CAD
Phy Exam
<NICOLE Juan - Last Filed: 08/20/25 16:19>
General Physical Exam
General Presentation: no apparent distress
General age: appears stated age
General Skin: warm and dry
General Habitus: obese
General Mental: alert
General Hydration: appears well hydrated
Cardiovascular Exam
Cardiovascular Exam: regular rate/rhythm, no murmur and normal peripheral pulses
Pulmonary Exam
Pulmonary Exam: lungs clear and no respiratory distress
Neurological Exam
Neurological Exam: alert and oriented x3
Musculoskeletal Exam
Musculoskeletal Exam: full ROM
Skin Exam
Skin Exam: normal color and warm/dry
Psychiatric Exam
Psychiatric Exam: normal mood/affect
Course
<NICOLE Juan - Last Filed: 08/20/25 16:19>
Orders/Labs/Results
Orders:
Orders
08/20/25 12:13
Electrocardiogram (*1) Stat
Reason for Study: Other
Other Reason for Exam: chest pain
Cardiac Monitoring- Treatment ONCE
EKG- Treatment ONCE
IV Insert/Care/Rem.- Treatment PRN
CR Chest - 2 Views Urgent
Comment:
Reason For Exam: sob
08/20/25 12:21
Complete Blood Count/With Diff Urgent
Comprehensive Metabolic Panel Urgent
NT-proBNP Urgent
Troponin I Urgent
08/20/25 12:28
COVID-19 Antigen Urgent
Source: Nasal Swab
Influenza A+B Rapid Molecular Urgent
LACY Source: Nasal Swab
Specimen Description:
Abnormal Lab Results
08/20/25
12:21
Hgb 11.2 L g/dL
(12.0-16.0)
MCV 77.8 L fL
(81.0-99.0)
MCH 23.3 L pg
(27.0-31.0)
MCHC 29.9 L g/dL
(33.0-37.0)
RDW 18.9 H %
(11.5-14.5)
Creatinine 0.5 L mg/dL
(0.6-1.0)
Glucose 198 H mg/dl
(70-99)
08/20/25 12:21
08/20/25 12:21
Vital Signs
Initial and Last Documented VS:
Initial Vital Signs
Temp Pulse Resp BP Pulse Ox
36.9 C 82 16 139/93 98
08/20/25 11:16 08/20/25 11:16 08/20/25 11:16 08/20/25 11:16 08/20/25 11:16
Last Documented Vital Signs
Temp Pulse Resp BP Pulse Ox
36.9 C 72 20 127/69 94
08/20/25 11:16 08/20/25 16:15 08/20/25 16:15 08/20/25 16:00 08/20/25 16:15
Stained Glass Painter consulted with Physician
Stained Glass Painter consulted with physician?: Yes
Name of Physician Consulted: Marc
<Jigar Tran MD - Last Filed: 08/20/25 16:32>
Orders/Labs/Results
Orders:
Orders
08/20/25 12:13
Electrocardiogram (*1) Stat
Reason for Study: Other
Other Reason for Exam: chest pain
Cardiac Monitoring- Treatment ONCE
EKG- Treatment ONCE
IV Insert/Care/Rem.- Treatment PRN
CR Chest - 2 Views Urgent
Comment:
Reason For Exam: sob
08/20/25 12:21
Complete Blood Count/With Diff Urgent
Comprehensive Metabolic Panel Urgent
NT-proBNP Urgent
Troponin I Urgent
08/20/25 12:28
COVID-19 Antigen Urgent
Source: Nasal Swab
Influenza A+B Rapid Molecular Urgent
LACY Source: Nasal Swab
Specimen Description:
Abnormal Lab Results
08/20/25
12:21
Hgb 11.2 L g/dL
(12.0-16.0)
MCV 77.8 L fL
(81.0-99.0)
MCH 23.3 L pg
(27.0-31.0)
MCHC 29.9 L g/dL
(33.0-37.0)
RDW 18.9 H %
(11.5-14.5)
Creatinine 0.5 L mg/dL
(0.6-1.0)
Glucose 198 H mg/dl
(70-99)
08/20/25 12:21
08/20/25 12:21
Vital Signs
Initial and Last Documented VS:
Initial Vital Signs
Temp Pulse Resp BP Pulse Ox
36.9 C 82 16 139/93 98
08/20/25 11:16 08/20/25 11:16 08/20/25 11:16 08/20/25 11:16 08/20/25 11:16
Last Documented Vital Signs
Temp Pulse Resp BP Pulse Ox
36.9 C 72 20 127/69 94
08/20/25 11:16 08/20/25 16:15 08/20/25 16:15 08/20/25 16:00 08/20/25 16:15
<NICOLE Juan - Last Filed: 08/20/25 16:19>
MDM/Problems Addressed
Differential Diagnosis Includes:
not limited to: IL , chf
MDM/Problems Addressed:
As documented patient is a 44-year-old female with significant cardiac history presents for evaluation. Patient had an iron transfusion last week and has had bodyaches that last longer than expected and has had some increased weight gain and
shortness of breath. Patient presents awake alert no acute distress lungs are clear no obvious lower extremity swelling she is in no acute distress not hypoxic nontachycardic nontachypneic. She denies any fever she is afebrile with a normal white
count hemoglobin stable normal renal function BNP low. Cardiac troponin negative.
Case d/c w/ DR Sorenson
Patient is well-appearing she does not appear fluid overloaded stable for discharge home with outpatient follow-up with Dr. Gomez
Chronic conditions affecting care:
IL
<NICOLE Juan - Last Filed: 08/20/25 16:19>
*Radiology
Radiology exam reviewed: radiology read reviewed
*Pulse Oximetry
SaO2: 98
Oxygen Mode of Delivery: Room air
Patient hypoxic: no
*EKG
Interpreted by ED Provider?: Yes
Heart Rate: 78
Rate: normal
Rhythm: sinus
Ischemia: non-specific ST changes
*Critical Care Note
Total Time (30-74mins, 75-104mins- exclusive of procedures): Not Applicable
<NICOLE Juan - Last Filed: 08/20/25 16:19>
Patient Management
Discussion with other providers: Mask Former (DR Sorenson )
ED Attending Note
<NICOLE Juan - Last Filed: 08/20/25 16:19>
-
Portions of this chart may have been created with voice recognition software.� Occasional wrong word or��sound alike� substitutions may have occurred due to the inherent limitations of voice recognition software.
<Jigar Tran MD - Last Filed: 08/20/25 16:32>
ED Attending Note
Patient seen and examined by attending physician: Yes
ED Attending Note:
I have seen and evaluated the patient with a [id number] encounter. I have spoken to the advance practicer provider and involved in the medical history, the physical exam, medical decision making.
Evaluation and management service: agree unless noted differently below.
Results interpretation: agree unless noted differently below.
Focused HPI: 44-year-old female with history as noted presents to the ER for evaluation of shortness of breath and weight gain. Patient reports that she has some chronic shortness of breath but has had some increased over the past week or 2. She
had a 5 pound weight gain last week after outpatient iron infusion. She was instructed to take torsemide over the weekend and says 5 pound weight gain resolved but she was still having some shortness of breath. Today want for another iron infusion
but because she was still short of breath was instructed to come to the ER. Denies chest pain. She does occasionally get swelling in the legs but none recently. She sees Dr. Carr for cardiology.
Physical exam: Awake and alert nondistressed. Vital signs normal. No edema in the legs. No JVD. Lungs sound clear. No rubs gallops or murmurs appreciated.
Medical Decision Makin-year-old female presents for evaluation of mild acute on chronic dyspnea, recent weight gain and improved with outpatient diuretic. Vitals and exam as above. Labs here were unremarkable including undetectable troponin
and normal proBNP. Chest x-ray shows no acute disease. Nurse practitioner discussed with cardiology, would likely benefit from continued diuresis. Discussed with patient, offered admission versus discharge with continued diuresis and outpatient
cardiology follow-up. Patient prefers outpatient management of her symptoms. Spoke about return precautions and all questions answered.
Discharge Plan
Departure
Patient Disposition: Home (Routine Discharge)
Date of Disposition: 08/20/25
Time of Disposition: 16:19
Patient with high blood pressure during this ER visit?: No
Condition: Fair
Covid-19: Not Applicable
Discharge Problem:
GEORGE (dyspnea on exertion)
Instructions: Shortness of Breath (Dyspnea) (DC)
Prescriptions:
No Action
cyclobenzaprine 10 mg Tablet
10 mg PO HS
cetirizine 10 mg Tablet
10 mg PO HS
glipizide 10 mg Tablet
10 mg PO BID
metformin 500 mg Tablet Extended Release 24 Hr
500 mg PO BID
rosuvastatin 40 mg Tablet
40 mg PO HS
bupropion HCl 150 mg Tablet Extended Release 24 Hr
150 mg PO HS
duloxetine 60 mg Capsule,Delayed Release(Dr/Ec)
60 mg PO DAILY
insulin glargine U-300 conc [Toujeo Max U-300 SoloStar] 300 unit/mL (3 mL) Insulin Pen
10 unit SC DAILY
Ozempic 1 mg/dose (4 mg/3 mL) Pen Injector
1 mg SC FR
amlodipine 5 mg Tablet
5 mg PO DAILY Qty: 90 3RF
aspirin 81 mg Tablet,Delayed Release (Dr/Ec)
81 mg PO DAILY Qty: 90 3RF
ezetimibe 10 mg Tablet
10 mg PO DAILY Qty: 90 3RF
lorazepam [Ativan] 1 mg Tablet
1 mg PO PRN PRN (Reason: anxiety)
docusate sodium 100 mg Capsule
100 mg PO BID Qty: 0 0RF
albuterol sulfate 90 mcg/actuation HFA aerosol inhaler
2 puff inhalation Q6H PRN (Reason: shortness of breath or wheezing) Qty: 8.5 0RF
buprenorphine HCl [Belbuca] 75 mcg Film
75 mcg BUCCAL HS
torsemide 5 mg tablet
10 mg PO PRN PRN (Reason: DIURETIC NEED)
metoprolol succinate 25 mg tablet extended release 24 hr
50 mg PO BID
Referrals:
Roby Moeller MD [Active, Cardiology]
Jennifer Guerra MD [Family Provider, Internal Medicine]
Activity Restrictions/Additional Instructions:
Follow up with your mechanics handyman as discussed in the next several days. Return if any worsening of symptoms
Interventions
Interventions:
*Risk Screen - Suicide Last Done: 08/20/25 11:16
*General Assessment Last Done: 08/20/25 14:58
*Neglect/Abuse Screening Last Done: 08/20/25 11:16
*ED- Fall Risk Assessment Last Done: 08/20/25 14:58
*ED COVID-19 Vaccine History Last Done: 08/20/25 14:58
*ED Influenza Vaccine History Last Done: 08/20/25 14:58
ED- Cardiac Assessment Last Done: 08/20/25 12:38
ED- Pulmonary Assessment Last Done: 08/20/25 12:38
Discharge Date and Time
Print Language: [place]
[2025-08-20 12:22] VITALS: BMI 45.8
[2025-08-20 12:39] LABS: Hematocrit 37.4 % (37.0-47.0); Hemoglobin 11.2 g/dL (12.0-16.0); Mean Corp Hgb Conc. 29.9 g/dL (33.0-37.0); Mean Corpuscular Volume 77.8 fL (81.0-99.0); Nucleated Red Blood Cells % 0 %; Platelet Count 276 10^3/uL (130-400); Red Cell Dist. Width 18.9 % (11.5-14.5)
[2025-08-20 13:00] VITALS: BP 118/65
[2025-08-20 13:03] LABS: COVID-19 Antigen Negative (Negative)
[2025-08-20 13:11] LABS: ALT (SGPT) 22 U/L (0-35); AST (SGOT) 25 U/L (14-36); Albumin 4.2 g/dl (3.5-5.0); Alkaline Phosphatase 62 U/L (38-126); Blood Urea Nitrogen 10 mg/dl (7-17); Calcium 8.9 mg/dl (8.4-10.2); Carbon Dioxide 26 mmol/L (22-30); Chloride 102 mmol/L (98-107); Estimated Creatinine Clearance > 125 ml/min; Glucose 198 mg/dl (70-99); Potassium 4.5 mmol/L (3.5-5.1); Sodium 137 mmol/L (135-145); Total Protein 6.9 g/dl (6.3-8.2); eGFR > 60.00
[2025-08-20 13:39] LABS: Troponin I < 0.012 ng/ml
[2025-08-20 14:00] VITALS: BP 131/76
[2025-08-20 15:01] VITALS: BP 120/82
[2025-08-20 16:00] VITALS: BP 127/69
== END 2025-08-20 16:39 | disposition home or self-care (01) ==
LOC: EMR 11:12
PROVIDERS: Nurse Practitioner; EMERGENCY PHYSICIAN Emergency Medicine; FAMILY PHYSICIAN Internal Medicine
DX: R06.02 Shortness of breath (principal); I25.810 Atherosclerosis of coronary artery bypass graft(s) without angina pectoris; I10 Essential (primary) hypertension; I25.2 Old myocardial infarction; E61.1 Iron deficiency; G47.33 Obstructive sleep apnea (adult) (pediatric); F41.8 Other specified anxiety disorders; K21.9 Gastro-esophageal reflux disease without esophagitis; G89.29 Other chronic pain; Z79.82 Long term (current) use of aspirin; Z95.1 Presence of aortocoronary bypass graft; Z95.5 Presence of coronary angioplasty implant and graft; Z87.891 Personal history of nicotine dependence; Z82.49 Family history of ischemic heart disease and other diseases of the circulatory system
CPT/HCPCS: 99284; 71046; 80053; 83880; 84484; 85025; 87502; 87811; 93005